=== PATIENT | male | born 1975 | race Caucasian/White ===

== ENCOUNTER 2019-05-15 22:34 | Emergency (ER) | payer MEDICAID ==
[~2019-05-15] VITALS: Ht 180.3 cm; Wt 84.0 kg
[2019-05-15] MEDS ORDERED: SODIUM CHLORIDE 0.9% IRRIG SOLUTION 1000ML IR ONE (23:15)
[2019-05-15 23:23] VITALS: BP 138/78
[2019-05-15] MEDS ORDERED: FLUORESCEIN SODIUM 1MG/STRIP LEFTEYE ONE (23:45)
== END 2019-05-16 19:00 | disposition left against medical advice (07) ==
LOC: ER 05-16 09:05
DX: T65.94XA Toxic effect of unspecified substance, undetermined, initial encounter (principal); X58.XXXA Exposure to other specified factors, initial encounter; F17.200 Nicotine dependence, unspecified, uncomplicated
CPT/HCPCS: 99281